=== PATIENT | female | born 1980 ===

== ENCOUNTER 2018-10-10 15:09 | Emergency (ER) | payer SELFPAY ==
[2018-10-10 15:20] VITALS: BP 131/86
--- NOTE | 2018-10-10 15:29 | EDPHY ---
H & P Stated Complaint: PT IN[facility]ETWEEN [facility] OUT OF MEDS X 1 MONTH INCREASING ANXIETY Source: Patient Exam Limitations: No limitations - Personal History LMP (Females 10-55): 22-28 Days Ago Current Tetanus Diphtheria and Acellular Pertussis (TDAP): Yes - Medical/Surgical History Hx Asthma: No Hx Chronic Respiratory Disease: No Hx Diabetes: No Hx Cardiac Disease: No Hx Renal Disease: No Hx Cirrhosis: No Hx Alcoholism: No Hx HIV/AIDS: No Hx Splenectomy or Spleen Trauma: No Other PMH: ANXIETY HTN - Social History Smoking Status: Never smoked Time Seen by Provider: 10/10/18 15:29 HPI/ROS: HPI: This is a 38-year-old female who presents with Chief Complaint: PT IN [facility]WE[facility] [place] OUT OF MEDS X 1 MONTH INCREASING ANXIETY Location: Body Quality: Out of medications Duration: 3 weeks Signs and Symptoms: no shortness of breath at rest, no shortness of breath on exertion, no cough, no chest pain, no palpitations, no lower extremity edema, no wheezing, no orthopnea, no paroxysmal nocturnal dyspnea, no fever, no injury/ trauma, no hemoptysis, no carpal pedal spasms Timing: Acute Severity: Mild Context: Patient has a history of hypertension, depression, anxiety presents with complaints of not having her medications x3 weeks. She reports that she normally takes losartan with hydrochlorothiazide, Zoloft and clonazepam 2 mg twice daily. She has not had any of these medications for the last 3 weeks. She does not have a primary care provider or mental health provider in the area. She reports that she is having increasing anxiety and panic attacks. Denies suicidal ideation, homicidal ideation, hallucinations. Modifying Factors: None Comment: ROS: A comprehensive 10 system review of systems is otherwise negative aside from elements mentioned in the history of present illness. MEDICAL/SURGICAL/SOCIAL HISTORY: Medical history: Hypertension, depression, anxiety. LMP 2-3 weeks ago. Surgical history: Denies Social history: and has children. Nonsmoker. CONSTITUTIONAL: Well-developed, well-nourished, middle-aged white female, awake and alert, no obvious distress HEENT: Atraumatic and normocephalic, PERRL, EOMI. Nares patent; no rhinorrhea; no nasal mucosal edema. Tympanic membranes clear. Oropharynx clear, no exudate and moist pink mucosa. Airway patent. No lymphadenopathy. No meningismus. Cardiovascular: Normal S1/S2, regular rate, regular rhythm, without murmur rub or gallop. PULMONARY/CHEST: Symmetrical and nontender. Clear to auscultation bilaterally. Good air movement. No accessory muscle usage. ABDOMEN: Soft, nondistended, nontender, no rebound, no guarding, no peritoneal signs, no masses or organomegaly. No CVAT. EXTREMITIES: 2/2 pulses, strength 5/5, no deformities, no clubbing, no cyanosis or edema. NEUROLOGICAL: no focal neuro deficits. GCS 15. SKIN: Warm and dry, no erythema. no rash. Good capillary refill. PSYCH: Good eye contact, no flight of ideas, organized thought process, good insight and judgment, no auditory hallucinations, no visual hallucinations, no suicidal ideation with a plan, no homicidal ideation, no paranoia (Dorcas Ramos) Constitutional: Initial Vital Signs Temperature (C) 37 C 10/10/18 15:17 Heart Rate 78 10/10/18 15:17 Respiratory Rate 18 10/10/18 15:17 Blood Pressure 131/86 H 10/10/18 15:17 O2 Sat (%) 96 10/10/18 15:17 O2 Delivery Mode Room Air Allergies/Adverse Reactions: No Known Allergies Allergy (Unverified 10/10/18 15:15) Home Medications: Medication Instructions Recorded CLONAZEPAM 10/10/18 Losartan Potassium 10/10/18 Losartan/Hctz 50/12.5 [Hyzaar 1 each PO DAILY #7 tab 10/10/18 50/12.5MG (*)] Sertraline HCl [Zoloft 100mg (*)] 100 mg PO DAILY #7 tab 10/10/18 Zoloft 100mg (*) 10/10/18 Medical Decision Making ED Course/Re-evaluation: Vital signs reviewed and show mildly elevated systolic blood pressure. Does not meet M1 hold criteria. Patient is not exhibiting any signs of benzodiazepine withdrawal Case management consult for primary care provider and establish care with [facility]. I advised that I would not prescribe clonazepam 2 mg twice a day. I did give her of prescription for 7 days of Zoloft and Losartan/HCTZ This patient was seen under the supervision of my secondary supervising physician. I evaluated care for this patient independently. (Dorcas Ramos) I did not see this patient while she was in the emergency department. However her care was discussed with the PA while the patient was in the department. I agree with treatment plan and management (Ap Chapman) Differential Diagnosis: Differential diagnosis includes but is not limited to major depression, anxiety disorder, schizophrenia, bipolar disorder, intoxicant use, suicidal ideation, psychosis, richardson. (Dorcas Ramos) Departure - Departure Disposition: Home, Routine, Self-Care Clinical Impression: Essential hypertension, Depression with anxiety, Has run out of medications Condition: Good Instructions: Depression (ED), Generalized Anxiety Disorder (ED), Low-Sodium Diet (ED), Hypertension (ED) Additional Instructions: Please take medications as prescribed. Establish care with primary care provider. Follow-up with [facility]. Referrals: [facility],. [Clinic] - As per Instructions [facility],. [Clinic] - As per Instructions Prescriptions: Losartan/Hctz 50/12.5 [Hyzaar 50/12.5MG (*)] 1 each PO DAILY #7 tab Sertraline HCl [Zoloft 100mg (*)] 100 mg PO DAILY #7 tab
== END 2018-10-10 15:52 | disposition home or self-care (01) ==
DX: Z76.0 Encounter for issue of repeat prescription (principal); F41.9 Anxiety disorder, unspecified; I10 Essential (primary) hypertension